=== PATIENT | female | born 1980 | race African-American/Black ===

== ENCOUNTER 2017-05-12 12:52 | Emergency (ER) | payer MEDICAID ==
[2017-05-12 13:07] VITALS: BP 158/113
[2017-05-12] MEDS ORDERED: HYDROCHLOROTHIAZIDE 12.5 MG CAPSULE PO ONE (13:18)
--- NOTE | 2017-05-12 13:18 | ER Document Report ---
ED Medical Screen (RME) - General Chief Complaint: High Blood Pressure Stated Complaint: BLOOD PRESSURE PROBLEMS Time Seen by Provider: 05/12/17 13:16 TRAVEL OUTSIDE OF THE [place] IN LAST 30 DAYS: No - HPI Notes: 05/12/17 13:16 Patient coming in for blood pressure issues. States headache ongoing for 2 days. Patient states feeling generally weak. Patient is on clonidine stop clonidine approximately 1 year ago[address] is Dr. Cee - Related Data Allergies/Adverse Reactions: hydrocodone bitartrate [From Vicodin] Allergy (Verified 05/12/17 13:05) iodine [Iodine] Allergy (Verified 05/12/17 13:05) Shellfish * [Shellfish] Allergy (Verified 05/12/17 13:05) Past Medical History - Past Medical History Cardiac Medical History: Reports: Hx Hypertension Denies: Hx Coronary Artery Disease, Hx Heart Attack Pulmonary Medical History: Reports: Hx Bronchitis Denies: Hx Asthma, Hx COPD, Hx Pneumonia, Hx Tuberculosis Neurological Medical History: Reports: Hx Migraine. Denies: Hx Cerebrovascular Accident, Hx Seizures Endocrine Medical History: Denies: Hx Diabetes Mellitus Type 1, Hx Diabetes Mellitus Type 2 Renal/ Medical History: Reports: Hx Ovarian Cysts. Denies: Hx Peritoneal Dialysis GI Medical History: Reports: Hx Gastroesophageal Reflux Disease, Hx Hiatal Hernia Musculoskeltal Medical History: Reports Hx Arthritis, Reports Hx Musculoskeletal Deformity, Reports Hx Musculoskeletal Trauma Skin Medical History: Denies Hx MRSA Psychiatric Medical History: Reports: Hx Anxiety Past Surgical History: Denies: Hx Pacemaker - Immunizations Immunizations up to date: Yes Hx Diphtheria, Pertussis, Tetanus Vaccination: Yes - 2010 Review of Systems - Review of Systems Constitutional: Other - Headache blood pressure Physical Exam - Vital signs Vitals: Temp Pulse Resp BP Pulse Ox 98.7 F 86 22 H 158/113 H 100 05/12/17 13:05 05/12/17 13:05 05/12/17 13:05 05/12/17 13:05 05/12/17 13:05 - Respiratory Respiratory status: No respiratory distress Chest status: Nontender Breath sounds: Normal Chest palpation: Normal Course - Re-evaluation Re-evalutation: 05/12/17 13:17 Check a previous visits his blood pressure is not normal for the patient today. We will check basic labs a head CT. We will give a dose ofhctz 05/12/17 13:18 - Vital Signs Vital signs: Temp Pulse Resp BP Pulse Ox 98.7 F 86 22 H 158/113 H 100 05/12/17 13:05 05/12/17 13:05 05/12/17 13:05 05/12/17 13:05 05/12/17 13:05
[2017-05-12 13:38] LABS: ABSOLUTE BASOPHILS # (AUTO) 0.2 10^3/uL (0.0-0.2); ABSOLUTE EOSINOPHILS # (AUTO) 0.2 10^3/uL (0.0-0.6); ABSOLUTE MONOCYTES (AUTO) 0.3 10^3/uL (0.1-1.4); ABSOLUTE NEUT (AUTO) 4.1 10^3/uL (1.7-8.2); BASOPHILS % (AUTO) 2.9 % (0-2); EOSINOPHILS % (AUTO) 2.8 % (0-6); HEMATOCRIT 41.6 % (36.0-47.0); HEMOGLOBIN 13.8 g/dL (12.0-15.5); HGB HCT DIFFERENCE -0.2; LYMPHOCYTES % (AUTO) 29.6 % (13-45); MEAN CORPUSCULAR HEMOGLOBIN 28.3 pg (27.0-33.4); MEAN CORPUSCULAR VOLUME 86 fl (80-97); RED BLOOD COUNT 4.85 10^6/uL (3.72-5.28); RED CELL DISTRIBUTION WIDTH 13.7 % (11.5-14.0); SEGMENTED NEUTROPHILS % (AUTO) 60.7 % (42-78); WHITE BLOOD COUNT 6.8 10^3/uL (4.0-10.5)
[2017-05-12 14:03] LABS: ANION GAP 10 (5-19); BLOOD UREA NITROGEN 14 mg/dL (7-20); CALCIUM 9.3 mg/dL (8.4-10.2); CARBON DIOXIDE 25 mmol/L (22-30); CHLORIDE 108 mmol/L (98-107); CREATININE RESULT 0.79 mg/dL (0.52-1.25); GLUCOSE 63 mg/dL (75-110); POTASSIUM 4.3 mmol/L (3.6-5.0)
--- NOTE | 2017-05-12 14:11 | RADIOLOGY REPORT (SQ) ---
EXAM DESCRIPTION: CT HEAD WITHOUT COMPLETED DATE/TIME: 05/12/2017 1:54 pm REASON FOR STUDY: headache COMPARISON: None. TECHNIQUE: Axial images acquired through the brain without intravenous contrast. Images reviewed wi th bone, brain and subdural windows. Images stored on PACS. All CT scanners at this facility use dose modulation, iterative reconstruction, and/or weight based d osing when appropriate to reduce radiation dose to as low as reasonably achievable (ALARA). [facility]: Dose Right [facility]: CareDose [facility]: Dose Right [facility]: Teradose 4D [facility]: [employer] RADIATION DOSE: 64.61 mGy. LIMITATIONS: None. FINDINGS: VENTRICLES: Normal size and contour. CEREBRUM: No masses. No hemorrhage. No midline shift. Normal rivera/white matter differentiation. N o evidence for acute infarction. CEREBELLUM: No masses. No hemorrhage. No alteration of density. No evidence for acute infarction. EXTRAAXIAL SPACES: No fluid collections. No masses. ORBITS AND GLOBE: No intra- or extraconal masses. Normal contour of globe without masses. CALVARIUM: No fracture. PARANASAL SINUSES: No fluid or mucosal thickening. SOFT TISSUES: No mass or hematoma. OTHER: No other significant finding. IMPRESSION: NORMAL BRAIN CT WITHOUT CONTRAST. TECHNICAL DOCUMENTATION: JOB ID: [id number] Quality ID # [id number]: Final reports with documentation of one or more dose reduction techniques (e.g., Au tomated exposure control, adjustment of the mA and/or kV according to patient size, use of iterative reconstruction technique) 2010 [employer]- All Rights Reserved
--- NOTE | 2017-05-12 15:14 | ER Document Report ---
ED General - General Chief Complaint: High Blood Pressure Stated Complaint: BLOOD PRESSURE PROBLEMS Time Seen by Provider: 05/12/17 13:16 TRAVEL OUTSIDE OF THE [place] IN LAST 30 DAYS: No - HPI Patient complains to provider of: Elevated blood pressure Notes: Patient states she was at work when she had her blood pressure taken and was sent to the ER for further evaluation of elevated blood pressure. Patient also complains of headache ongoing for the last 2 days. States she used to be on clonidine however she has not taken any clonidine for approximately 1 year. Patient also complains of slight nausea and vomiting over the last few days to as well. Patient denies any fevers chills diarrhea. Denies any recent travel denies any sick contacts - Related Data Allergies/Adverse Reactions: hydrocodone bitartrate [From Vicodin] Allergy (Verified 05/12/17 13:05) iodine [Iodine] Allergy (Verified 05/12/17 13:05) Shellfish * [Shellfish] Allergy (Verified 05/12/17 13:05) Past Medical History - Social History Smoking Status: Current Every Day Smoker Frequency of alcohol use: None Drug Abuse: None Family History: Arthritis, CAD, CVA, DM, Hyperlipidemia, Hypertension, Malignancy, Thyroid Disfunction Patient has suicidal ideation: No Patient has homicidal ideation: No - Past Medical History Cardiac Medical History: Reports: Hx Hypertension Denies: Hx Coronary Artery Disease, Hx Heart Attack Pulmonary Medical History: Reports: Hx Bronchitis Denies: Hx Asthma, Hx COPD, Hx Pneumonia, Hx Tuberculosis Neurological Medical History: Reports: Hx Migraine. Denies: Hx Cerebrovascular Accident, Hx Seizures Endocrine Medical History: Denies: Hx Diabetes Mellitus Type 1, Hx Diabetes Mellitus Type 2 Renal/ Medical History: Reports: Hx Ovarian Cysts. Denies: Hx Peritoneal Dialysis GI Medical History: Reports: Hx Gastroesophageal Reflux Disease, Hx Hiatal Hernia Musculoskeltal Medical History: Reports Hx Arthritis, Reports Hx Musculoskeletal Deformity, Reports Hx Musculoskeletal Trauma Skin Medical History: Denies Hx MRSA Psychiatric Medical History: Reports: Hx Anxiety Past Surgical History: Denies: Hx Pacemaker - Immunizations Immunizations up to date: Yes Hx Diphtheria, Pertussis, Tetanus Vaccination: Yes - 2010 Review of Systems - Review of Systems Constitutional: Other - Vomiting elevated blood pressure headache EENT: No symptoms reported Cardiovascular: No symptoms reported Respiratory: No symptoms reported Gastrointestinal: No symptoms reported Genitourinary: No symptoms reported Female Genitourinary: No symptoms reported Musculoskeletal: No symptoms reported Skin: No symptoms reported Hematologic/Lymphatic: No symptoms reported Neurological/Psychological: No symptoms reported Physical Exam - Vital signs Vitals: Temp Pulse Resp BP Pulse Ox 98.7 F 86 22 H 158/113 H 100 05/12/17 13:05 05/12/17 13:05 05/12/17 13:05 05/12/17 13:05 05/12/17 13:05 Interpretation: Normal - General General appearance: Appears well, Alert - HEENT Head: Normocephalic, Atraumatic Eyes: Normal Pupils: PERRL - Respiratory Respiratory status: No respiratory distress Chest status: Nontender Breath sounds: Normal Chest palpation: Normal - Cardiovascular Rhythm: Regular Heart sounds: Normal auscultation Murmur: No - Abdominal Inspection: Normal Distension: No distension Bowel sounds: Normal Tenderness: Nontender Organomegaly: No organomegaly - Back Back: Normal, Nontender - Extremities General upper extremity: Normal inspection, Nontender, Normal color, Normal ROM , Normal temperature General lower extremity: Normal inspection, Nontender, Normal color, Normal ROM , Normal temperature, Normal weight bearing. No: Desmond's sign - Neurological Neuro grossly intact: Yes Cognition: Normal Orientation: AAOx4 [place] Coma Scale Eye Opening: Spontaneous [place] Coma Scale Verbal: Oriented [place] Coma Scale Motor: Obeys Commands [place] Coma Scale Total: 15 Speech: Normal Motor strength normal: LUE, RUE, LLE, RLE Sensory: Normal - Psychological Associated symptoms: Normal affect, Normal mood - Skin Skin Temperature: Warm Skin Moisture: Dry Skin Color: Normal Course - Re-evaluation Re-evalutation: 05/12/17 20:01 The patient presents with headache without signs of [employer] bleed, stroke, infection , or other serious etiology. The patient is neurologically intact. Given the extremely low risk of these diagnoses further testing and evaluation for these possibilities does not appear to be indicated at this time. The patient has been instructed to return if the symptoms worsen or change in any way.. Patient requesting to be discharged lab work returns currently waiting on urinalysis patient does not want to wait for urinalysis at this time. States that patient make sure we have the contact information that we will call her if urinalysis is positive otherwise patient has noted other significant findings patient was educated about blood pressure patient will be given a prescription for hydrochlorothiazide encouraged follow-up with primary care physician. Reevaluation patient's urinalysis does show signs of infection patient was given a prescription to prescription was given to the charge nurse - Vital Signs Vital signs: Temp Pulse Resp BP Pulse Ox 98.7 F 86 22 H 158/113 H 100 05/12/17 13:05 05/12/17 13:05 05/12/17 13:05 05/12/17 13:05 05/12/17 13:05 - Laboratory Result Diagrams: 05/12/17 13:24 05/12/17 13:24 Laboratory results interpreted by me: 05/12/17 05/12/17 13:24 13:24 Basophils % 2.9 H Chloride 108 H Glucose 63 L Discharge - Discharge Clinical Impression: Hypertension Qualifiers: Hypertension type: other secondary hypertension Qualified Code(s): I15.8 - Other secondary hypertension Condition: Good Disposition: HOME, SELF-CARE Instructions: Hydrochlorothiazide ([facility]), High Blood Pressure ([facility]) Additional Instructions: I recommended she follow-up with your physician for blood pressure. Return to the ER for any concerning issues. Take medication as prescribed. Prescriptions: Hydrochlorothiazide 12.5 mg PO DAILY #30 capsule Forms: Return to Work Referrals: CLARIBEL CRUZ DO [Primary Care Provider] - Follow up as needed
== END 2017-05-12 15:30 | disposition home or self-care (01) ==
LOC: ER 12:52
DX: R51 Headache (principal); I15.8 Other secondary hypertension; Z79.899 Other long term (current) drug therapy; F17.200 Nicotine dependence, unspecified, uncomplicated; R11.2 Nausea with vomiting, unspecified
CPT/HCPCS: 36415; 70450; 80048; 84702; 85025; 99284

== ENCOUNTER 2018-04-19 09:11 | Emergency (ER) | payer SELFPAY ==
--- NOTE | 2018-04-19 09:31 | ER Document Report ---
ED Medical Screen (RME) - General Chief Complaint: S/S of Possible Stroke Stated Complaint: FACIAL SWELLING Time Seen by Provider: 04/19/18 09:24 Mode of Arrival: Ambulatory Information source: Patient Notes: 37-year-old female presents with complaints of left facial swelling left arm swelling weakness on the left upper extremity and not being able to feel her left hand I have greeted and performed a rapid initial assessment of this patient. A comprehensive ED assessment and evaluation of the patient, analysis of test results and completion of the medical decision making process will be conducted by additional ED providers. PHYSICAL EXAMINATION: GENERAL: Well-appearing, well-nourished and in no acute distress. HEAD: Right side appears more swollen than left the patient states it is the left side EYES: Pupils equal round extraocular movements intact, conjunctiva are normal. ENT: Nares patent NECK: Normal range of motion LUNGS: No respiratory distress Musculoskeletal: Normal range of motion NEUROLOGICAL: Subjective paresthesia left hand PSYCH: Normal mood, normal affect. SKIN: Warm, Dry, normal turgor, no rashes or lesions noted. TRAVEL OUTSIDE OF THE [place] IN LAST 30 DAYS: No - Related Data Allergies/Adverse Reactions: hydrocodone bitartrate [From Vicodin] Allergy (Verified 04/19/18 09:13) iodine [Iodine] Allergy (Verified 04/19/18 09:13) Shellfish * [Shellfish] Allergy (Verified 04/19/18 09:13) Past Medical History - Past Medical History Cardiac Medical History: Reports: Hx Hypertension Denies: Hx Coronary Artery Disease, Hx Heart Attack Pulmonary Medical History: Reports: Hx Bronchitis Denies: Hx Asthma, Hx COPD, Hx Pneumonia, Hx Tuberculosis Neurological Medical History: Reports: Hx Migraine. Denies: Hx Cerebrovascular Accident, Hx Seizures Endocrine Medical History: Denies: Hx Diabetes Mellitus Type 1, Hx Diabetes Mellitus Type 2 Renal/ Medical History: Reports: Hx Ovarian Cysts. Denies: Hx Peritoneal Dialysis GI Medical History: Reports: Hx Gastroesophageal Reflux Disease, Hx Hiatal Hernia Musculoskeltal Medical History: Reports Hx Arthritis, Reports Hx Musculoskeletal Deformity, Reports Hx Musculoskeletal Trauma Skin Medical History: Denies Hx MRSA Psychiatric Medical History: Reports: Hx Anxiety Past Surgical History: Denies: Hx Pacemaker - Immunizations Immunizations up to date: Yes Hx Diphtheria, Pertussis, Tetanus Vaccination: Yes - 2010 Physical Exam - Vital signs Vitals: Temp Pulse Resp BP Pulse Ox 98.6 F 78 16 159/110 H 99 04/19/18 09:18 04/19/18 09:18 04/19/18 09:18 04/19/18 09:18 04/19/18 09:18 Course - Vital Signs Vital signs: Temp Pulse Resp BP Pulse Ox 98.6 F 78 16 159/110 H 99 04/19/18 09:18 04/19/18 09:18 04/19/18 09:18 04/19/18 09:18 04/19/18 09:18 Doctor's Discharge - Discharge Referrals: CLARIBEL CRUZ DO [Primary Care Provider] - Follow up as needed
--- NOTE | 2018-04-19 10:04 | RADIOLOGY REPORT (SQ) ---
EXAM DESCRIPTION: CT HEAD WITHOUT COMPLETED DATE/TIME: 04/19/2018 9:48 am REASON FOR STUDY: left sided weakness COMPARISON: CT brain 05/12/2017 TECHNIQUE: Axial images acquired through the brain without intravenous contrast. Images reviewed wi th bone, brain and subdural windows. Additional sagittal and coronal reconstructions were generated. Images stored on PACS. All CT scanners at this facility use dose modulation, iterative reconstruction, and/or weight based d osing when appropriate to reduce radiation dose to as low as reasonably achievable (ALARA). [facility]: Dose Right [facility]: CareDose [facility]: Dose Right [facility]: Teradose 4D [facility]: [employer] RADIATION DOSE: CT Rad equipment meets quality standard of care and radiation dose reduction techniq ues were employed. CTDIvol: 53.2 mGy. DLP: 1017 mGy-cm. mGy. LIMITATIONS: None. FINDINGS: VENTRICLES: Normal size and contour. CEREBRUM: No masses. No hemorrhage. No midline shift. No evidence for acute infarction. Normal gra y/white matter differentiation. No areas of low density in the white matter. CEREBELLUM: No masses. No hemorrhage. No alteration of density. No evidence for acute infarction. EXTRAAXIAL SPACES: No fluid collections. No masses. ORBITS AND GLOBE: No intra- or extraconal masses. Normal contour of globe without masses. CALVARIUM: No fracture. PARANASAL SINUSES: No fluid or mucosal thickening. SOFT TISSUES: No mass or hematoma. OTHER: No other significant finding. IMPRESSION: NORMAL BRAIN CT WITHOUT CONTRAST. EVIDENCE OF ACUTE STROKE: NO. COMMENT: Quality ID # [id number]: Final reports with documentation of one or more dose reduction techniques (e.g., Automated exposure control, adjustment of the mA and/or kV according to patient size, use of iterative reconstruction technique) TECHNICAL DOCUMENTATION: JOB ID: [id number] [employer]- All Rights Reserved Reading location - IP/workstation name: [email or web address]
--- NOTE | 2018-04-19 10:08 | RADIOLOGY REPORT (SQ) ---
EXAM DESCRIPTION: CHEST SINGLE VIEW COMPLETED DATE/TIME: 04/19/2018 9:52 am REASON FOR STUDY: left sided weakness COMPARISON: 12/21/2010, 09/05/2007 EXAM PARAMETERS: NUMBER OF VIEWS: One view. TECHNIQUE: Single frontal radiographic view of the chest acquired. RADIATION DOSE: NA LIMITATIONS: None. FINDINGS: LUNGS AND PLEURA: No opacities, masses or pneumothorax. No pleural effusion. MEDIASTINUM AND HILAR STRUCTURES: No masses. Contour normal. HEART AND VASCULAR STRUCTURES: Heart normal in size. Normal vasculature. BONES: No acute findings. HARDWARE: None in the chest. OTHER: No other significant finding. IMPRESSION: NO ACUTE RADIOGRAPHIC FINDING IN THE CHEST. TECHNICAL DOCUMENTATION: JOB ID: [id number] [employer]- All Rights Reserved Reading location - IP/workstation name: [email or web address]
[2018-04-19 10:45] LABS: INTERNATIONAL RATION (INR) 0.96; PROTHROMBIN TIME 13.3 SEC (11.4-15.4)
[2018-04-19 10:46] LABS: PARTIAL THROMBOPLASTIN TIME 30.9 SEC (23.5-35.8)
[2018-04-19 11:01] LABS: ABSOLUTE EOSINOPHILS # (AUTO) 0.2 10^3/uL (0.0-0.6); ABSOLUTE LYMPHOCYTES (AUTO) 1.9 10^3/uL (0.5-4.7); ABSOLUTE MONOCYTES (AUTO) 0.3 10^3/uL (0.1-1.4); ABSOLUTE NEUT (AUTO) 3.2 10^3/uL (1.7-8.2); BASOPHILS % (AUTO) 0.4 % (0-2); HEMATOCRIT 40.8 % (36.0-47.0); HEMOGLOBIN 13.5 g/dL (12.0-15.5); LYMPHOCYTES % (AUTO) 33.6 % (13-45); MEAN CORPUSCULAR HEMOGLOBIN 28.6 pg (27.0-33.4); MEAN CORPUSCULAR VOLUME 87 fl (80-97); MONOCYTES % (AUTO) 5.7 % (3-13); PLATELET COUNT 152 10^3/uL (150-450); RED BLOOD COUNT 4.71 10^6/uL (3.72-5.28); RED CELL DISTRIBUTION WIDTH 14.1 % (11.5-14.0); SEGMENTED NEUTROPHILS % (AUTO) 57.3 % (42-78); TOTAL CELLS COUNTED % (AUTO) 100 %; WHITE BLOOD COUNT 5.6 10^3/uL (4.0-10.5)
[2018-04-19] MEDS ORDERED: DIPHENHYDRAMINE HCL 50 MG/ML VIAL IV ONE (11:12)
--- NOTE | 2018-04-19 11:12 | ER Document Report ---
ED General - General Chief Complaint: S/S of Possible Stroke Stated Complaint: FACIAL SWELLING Time Seen by Provider: 04/19/18 09:24 Mode of Arrival: Ambulatory Information source: Patient Notes: Patient presents to emergency department with complaints of swelling to the left-side of her face down to the feet and pain to the left side of her face. She reports her arm has been hurting for a couple weeks. 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 Reports her arm only hurts when she moves it. She reports the left side of her face started hurting yesterday. She points to her left cheek. Denies dental pain. Denies headache denies fever vomiting diarrhea. TRAVEL OUTSIDE OF THE [place] IN LAST 30 DAYS: No - HPI Onset: Other Onset/Duration: Persistent Quality of pain: Achy Associated symptoms: None Exacerbated by: Movement Relieved by: Denies Similar symptoms previously: No Recently seen / treated by doctor: No - Related Data Allergies/Adverse Reactions: hydrocodone bitartrate [From Vicodin] Allergy (Verified 04/19/18 09:13) iodine [Iodine] Allergy (Verified 04/19/18 09:13) Shellfish * [Shellfish] Allergy (Verified 04/19/18 09:13) Past Medical History - General Information source: Patient - Social History Smoking Status: Current Every Day Smoker Chew tobacco use (# tins/day): No Frequency of alcohol use: Occasional Drug Abuse: None Occupation: [employer] in [employer] Family History: Arthritis, CAD, CVA, DM, Hyperlipidemia, Hypertension, Malignancy, Thyroid Disfunction Patient has suicidal ideation: No Patient has homicidal ideation: No - Past Medical History Cardiac Medical History: Reports: Hx Hypertension Denies: Hx Coronary Artery Disease, Hx Heart Attack Pulmonary Medical History: Reports: Hx Bronchitis Denies: Hx Asthma, Hx COPD, Hx Pneumonia, Hx Tuberculosis Neurological Medical History: Reports: Hx Migraine. Denies: Hx Cerebrovascular Accident, Hx Seizures Endocrine Medical History: Denies: Hx Diabetes Mellitus Type 1, Hx Diabetes Mellitus Type 2 Renal/ Medical History: Reports: Hx Ovarian Cysts. Denies: Hx Peritoneal Dialysis GI Medical History: Reports: Hx Gastroesophageal Reflux Disease, Hx Hiatal Hernia Musculoskeltal Medical History: Reports Hx Arthritis, Reports Hx Musculoskeletal Deformity, Reports Hx Musculoskeletal Trauma Skin Medical History: Denies Hx MRSA Psychiatric Medical History: Reports: Hx Anxiety Past Surgical History: Denies: Hx Pacemaker - Immunizations Immunizations up to date: Yes Hx Diphtheria, Pertussis, Tetanus Vaccination: Yes - 2010 Review of Systems - Review of Systems Notes: Review HPI for review of systems., All other systems negative Physical Exam - Vital signs Vitals: Temp Pulse Resp BP Pulse Ox 98.6 F 78 16 159/110 H 99 04/19/18 09:18 04/19/18 09:18 04/19/18 09:18 04/19/18 09:18 04/19/18 09:18 - Notes Notes: PHYSICAL EXAMINATION: GENERAL: Well-appearing and in no acute distress HEAD: Atraumatic, normocephalic. EYES: Pupils equal round and reactive to light, extraocular movements intact, sclera anicteric, conjunctiva are normal. ENT: nares patent, oropharynx clear without exudates. opens mouth wide good airway moist mucous membranes. NECK: Normal range of motion, supple without lymphadenopathy LUNGS: CTAB and equal. No wheezes rales or rhonchi. HEART: Regular rate and rhythm without murmurs ABDOMEN: Soft, no tenderness. No guarding, no rebound EXTREMITIES: Normal range of motion, no pitting edema. No cyanosis. c/o pain with raising of left arm, no obvious deformity, erythema no swelling good radial pulse good cap refill, planes of pain when left shoulder palpated. NEUROLOGICAL: Cranial nerves grossly intact. Normal sensory/motor exams. no obvious neuro deficits, equal smile, no slurred speech, eyebrows raised symetric PSYCH: Normal mood, normal affect. SKIN: Warm, Dry, normal turgor, no rashes or lesions noted - HEENT Head: Normocephalic Eyes: Normal Conjunctiva: Normal Extraocular movements intact: Yes Eyelashes: Normal Pupils: PERRL Ears: Normal Nasal: Normal Mouth/Lips: Normal Mucous membranes: Normal Pharynx: Normal Neck: Normal. No: Lymphadenopathy - Extremities General upper extremity: Normal inspection, Normal ROM Shoulder: Normal Arm: Normal Elbow: Normal Forearm: Normal Wrist: Normal Hand: Normal - Neurological Neuro grossly intact: Yes Cognition: Normal Orientation: AAOx4 [place] Coma Scale Eye Opening: Spontaneous [place] Coma Scale Verbal: Oriented [place] Coma Scale Motor: Obeys Commands [place] Coma Scale Total: 15 Speech: Normal Cranial nerves: Normal Cerebellar coordination: Normal Motor strength normal: LUE, RUE, LLE, RLE Additional motor exam normals: Equal corporate counsel Course - Re-evaluation Re-evalutation: 04/19/18 12:27 Patient ambulated down the hooper to the restroom without problems. right upper eyelid with slight swelling, benadryl ordered, pt denies recent exposure to shellfish, iodine, reports decreased appetite but drinking well. 04/19/18 14:54 Labs and radiology exams unremarkable CONSULTED Dr Calderon regarding high blood pressure patient complaints radiology results. He agrees no obvious neuro deficit no obvious drooping of the face no slurred speech. Also discussed high blood pressure, patient has a history of a high blood pressure for years. She is noncompliant she reports she did not take her lisinopril last night. Will switch her to hydrochlorothiazide per Dr Womack instruction, instructed to follow-up with her primary care provider. - Vital Signs Vital signs: Temp Pulse Resp BP Pulse Ox 98.6 F 78 18 167/118 H 100 04/19/18 09:18 04/19/18 09:18 04/19/18 15:01 04/19/18 15:01 04/19/18 15:01 - Laboratory Result Diagrams: 04/19/18 10:20 04/19/18 10:20 Laboratory results interpreted by me: 04/19/18 04/19/18 10:20 10:20 RDW 14.1 H Sodium 145.9 H Glucose 67 L Total Protein 9.0 H - Diagnostic Test Radiology reviewed: Image reviewed, Reports reviewed - Diagnostic report text EXAM DESCRIPTION: SHOULDER LEFT 2 OR MORE VIEWS COMPLETED DATE/TIME: 04/19/2018 1:16 pm REASON FOR STUDY: pain with movement COMPARISON: None. NUMBER OF VIEWS: Three views. TECHNIQUE: Internal rotation, external rotation, and Y view images acquired of the left shoulder. LIMITATIONS: None. FINDINGS: MINERALIZATION: Normal. BONES: No acute fracture or dislocation. No worrisome bone lesions. JOINTS: No glenohumeral dislocation. No widening of the acromioclavicular joint VISUALIZED LUNGS AND RIBS: No pneumothorax. No rib fracture. SOFT TISSUES: No radiopaque foreign body. OTHER: No other significant finding. IMPRESSION: NEGATIVE STUDY OF THE LEFT SHOULDER. NO RADIOGRAPHIC EVIDENCE OF ACUTE INJURY Diagnostic report text EXAM DESCRIPTION: CT HEAD WITHOUT COMPLETED DATE/TIME: 04/19/2018 9:48 am REASON FOR STUDY: left sided weakness COMPARISON: CT brain 05/12/2017 TECHNIQUE: Axial images acquired through the brain without intravenous contrast. Images reviewed with bone, brain and subdural windows. Additional sagittal and coronal reconstructions were generated. Images stored on PACS. All CT scanners at this facility use dose modulation, iterative reconstruction, and/or weight based dosing when appropriate to reduce radiation dose to as low as reasonably achievable (ALARA). [facility]: Dose Right [facility]: CareDose [facility]: Dose Right [facility]: Teradose 4D [facility]: [employer] RADIATION DOSE: CT Rad equipment meets quality standard of care and radiation dose reduction techniques were employed. CTDIvol: 53.2 mGy. DLP: 1017 mGy-cm. mGy. LIMITATIONS: None. FINDINGS: VENTRICLES: Normal size and contour. CEREBRUM: No masses. No hemorrhage. No midline shift. No evidence for acute infarction. Normal rivera/ white matter differentiation. No areas of low density in the white matter. CEREBELLUM: No masses. No hemorrhage. No alteration of density. No evidence for acute infarction. EXTRAAXIAL SPACES: No fluid collections. No masses. ORBITS AND GLOBE: No intra- or extraconal masses. Normal contour of globe without masses. CALVARIUM: No fracture. PARANASAL SINUSES: No fluid or mucosal thickening. SOFT TISSUES: No mass or hematoma. OTHER: No other significant finding. IMPRESSION: NORMAL BRAIN CT WITHOUT CONTRAST. EVIDENCE OF ACUTE STROKE: NO. Discharge - Discharge Clinical Impression: left shoulder arm pain High blood pressure Qualifiers: Hypertension type: unspecified Qualified Code(s): I10 - Essential (primary) hypertension Condition: Stable Disposition: HOME, SELF-CARE Instructions: High Blood Pressure, Requiring Treatment ([facility]), Hydrochlorothiazide ([facility]) Additional Instructions: *You have been evaluated for left shoulder/arm pain swelling, left sided facial pain, high blood pressure *Take your blood pressure medication as prescribed *Follow up with a primary care provider within 3 days *Return to ED for worsening condition, changes, needs *Return to ED if not better in 24 hours Prescriptions: Hydrochlorothiazide 12.5 mg PO BID #30 capsule Forms: Return to Work Referrals: CLARIBEL CRUZ DO [Primary Care Provider] - Follow up in 3-5 days
[2018-04-19 11:16] LABS: ALANINE AMINOTRANSFERASE 25 U/L (9-52); ALBUMIN 4.8 g/dL (3.5-5.0); ALKALINE PHOSPHATASE 54 U/L (38-126); ANION GAP 13 (5-19); ASPARTATE AMINO TRANSFERASE 28 U/L (14-36); BILIRUBIN,DIRECT 0.3 mg/dL (0.0-0.4); BILIRUBIN,TOTAL 0.3 mg/dL (0.2-1.3); BLOOD UREA NITROGEN 16 mg/dL (7-20); CALCIUM 9.8 mg/dL (8.4-10.2); CARBON DIOXIDE 27 mmol/L (22-30); CHLORIDE 106 mmol/L (98-107); CREATINE KINASE 83 U/L (30-135); GLUCOSE 67 mg/dL (75-110); POTASSIUM 4.9 mmol/L (3.6-5.0); SODIUM 145.9 mmol/L (137-145)
[2018-04-19 11:26] LABS: CREATINE KINASE MB 0.38 ng/mL (<4.55)
[2018-04-19 11:28] LABS: TROPONIN I < 0.012 ng/mL
--- NOTE | 2018-04-19 12:16 | RADIOLOGY REPORT (SQ) ---
EXAM DESCRIPTION: VENOUS UNILATERAL UPPER COMPLETED DATE/TIME: 04/19/2018 11:50 am REASON FOR STUDY: left neck and left arm swelling COMPARISON: None. TECHNIQUE: Dynamic and static rivera scale and color images acquired of the left arm venous system. Se lected spectral images acquired with additional compression and augmentation maneuvers. The contralat eral subclavian vein and internal jugular vein were also imaged. Images stored on PACS. LIMITATIONS: None. FINDINGS: LEFT INTERNAL JUGULAR VEIN: Normal phasicity, compression, augmentation. No visualized echogenic material on rivera scale. No defects on color images. Comparison opposite side normal. SUBCLAVIAN VEIN: Normal compression, augmentation. No visualized echogenic material on rivera scale. No defects on color images. AXILLARY VEIN: Normal compression, augmentation. No visualized echogenic material on rivera scale. No d efects on color images. BRACHIAL VEIN: Normal compression, augmentation. No visualized echogenic material on rivera scale. No d efects on color images. BASILIC VEIN: Normal compression, augmentation. No visualized echogenic material on rivera scale. No de fects on color images. CEPHALIC VEIN: Normal compression, augmentation. No visualized echogenic material on rivera scale. No d efects on color images. OTHER: No other significant finding. IMPRESSION: NO EVIDENCE DVT OR SVT LEFT ARM. TECHNICAL DOCUMENTATION: JOB ID: [id number] [email or web address]- All Rights Reserved Reading location - IP/workstation name: [email or web address]
--- NOTE | 2018-04-19 13:37 | RADIOLOGY REPORT (SQ) ---
EXAM DESCRIPTION: SHOULDER LEFT 2 OR MORE VIEWS COMPLETED DATE/TIME: 04/19/2018 1:16 pm REASON FOR STUDY: pain with movement COMPARISON: None. NUMBER OF VIEWS: Three views. TECHNIQUE: Internal rotation, external rotation, and Y view images acquired of the left shoulder. LIMITATIONS: None. FINDINGS: MINERALIZATION: Normal. BONES: No acute fracture or dislocation. No worrisome bone lesions. JOINTS: No glenohumeral dislocation. No widening of the acromioclavicular joint VISUALIZED LUNGS AND RIBS: No pneumothorax. No rib fracture. SOFT TISSUES: No radiopaque foreign body. OTHER: No other significant finding. IMPRESSION: NEGATIVE STUDY OF THE LEFT SHOULDER. NO RADIOGRAPHIC EVIDENCE OF ACUTE INJURY. TECHNICAL DOCUMENTATION: JOB ID: [id number] [employer]- All Rights Reserved Reading location - IP/workstation name: [email or web address]
[2018-04-19 15:11] VITALS: BP 167/118
--- NOTE | 2018-04-19 20:55 | EKG REPORT ---
SEVERITY:- NORMAL ECG - SINUS RHYTHM : Confirmed by: Sarahi Minaya 19-Apr-2018 20:55:05
== END 2018-04-19 15:20 | disposition home or self-care (01) ==
LOC: ER 09:11
DX: M25.512 Pain in left shoulder (principal); I10 Essential (primary) hypertension; R22.0 Localized swelling, mass and lump, head; M79.89 Other specified soft tissue disorders; R63.0 Anorexia; X50.9XXA Other and unspecified overexertion or strenuous movements or postures, initial encounter; F17.200 Nicotine dependence, unspecified, uncomplicated
CPT/HCPCS: 93005; 99284; 96374; 36415; 82553; 82550; 85025; 85610; 85730; 80053; 84484; 93971; 71045; 73030; 70450; 93010; J1200

== ENCOUNTER 2018-09-24 09:30 | Emergency (ER) | payer SELFPAY ==
[2018-09-24] MEDS ORDERED: CLONIDINE HCL 0.1 MG TABLET PO ONE (10:19)
[2018-09-24] MEDS ORDERED: ACETAMINOPHEN 325 MG TABLET PO ONE (10:24)
--- NOTE | 2018-09-24 10:24 | ER Document Report ---
ED General - General Chief Complaint: Congestion Stated Complaint: COUGH/FEVER Time Seen by Provider: 09/24/18 10:16 Mode of Arrival: Ambulatory Information source: Patient Notes: 4-week history of rhinorrhea, sore throat, cough. Patient states that she has been taking [id number] medication with minimal relief of symptoms. Patient states that she is began running some fevers. She feels like this is worsening. She states that she is also had some intermittent nausea. She denies any abdominal pain, chest pain, difficulty breathing. Hx of sick contacts with similar symptoms. TRAVEL OUTSIDE OF THE [place] IN LAST 30 DAYS: No - HPI Onset: Other - 4 weeks Onset/Duration: Gradual Associated symptoms: Chills, Productive cough, Fever, Nausea, Vomiting, Rhinnorhea Exacerbated by: Denies Relieved by: Denies Similar symptoms previously: Yes Recently seen / treated by doctor: No - Related Data Allergies/Adverse Reactions: egg Allergy (Verified 09/24/18 11:22) hydrocodone bitartrate [From Vicodin] Allergy (Verified 09/24/18 11:22) iodine [Iodine] Allergy (Verified 09/24/18 11:22) Shellfish * [Shellfish] Allergy (Verified 09/24/18 11:22) Past Medical History - Social History Smoking Status: Current Every Day Smoker Chew tobacco use (# tins/day): No Frequency of alcohol use: None Drug Abuse: None Family History: Arthritis, CAD, CVA, DM, Hyperlipidemia, Hypertension, Malignancy, Thyroid Disfunction Patient has suicidal ideation: No Patient has homicidal ideation: No - Past Medical History Cardiac Medical History: Reports: Hx Hypertension Denies: Hx Coronary Artery Disease, Hx Heart Attack Pulmonary Medical History: Reports: Hx Bronchitis Denies: Hx Asthma, Hx COPD, Hx Pneumonia, Hx Tuberculosis Neurological Medical History: Reports: Hx Migraine. Denies: Hx Cerebrovascular Accident, Hx Seizures Endocrine Medical History: Denies: Hx Diabetes Mellitus Type 1, Hx Diabetes Mellitus Type 2 Renal/ Medical History: Reports: Hx Ovarian Cysts. Denies: Hx Peritoneal Dialysis GI Medical History: Reports: Hx Gastroesophageal Reflux Disease, Hx Hiatal Hernia Musculoskeletal Medical History: Reports Hx Arthritis, Reports Hx Musculoskeletal Deformity, Reports Hx Musculoskeletal Trauma Skin Medical History: Denies Hx MRSA Psychiatric Medical History: Reports: Hx Anxiety Past Surgical History: Denies: Hx Pacemaker - Immunizations Immunizations up to date: Yes Hx Diphtheria, Pertussis, Tetanus Vaccination: Yes - 2010 Review of Systems - Review of Systems Constitutional: Chills, Fever EENT: Nose discharge, Throat pain Cardiovascular: No symptoms reported Respiratory: Cough Gastrointestinal: Nausea, Vomiting Genitourinary: No symptoms reported Female Genitourinary: No symptoms reported Musculoskeletal: No symptoms reported Skin: No symptoms reported Hematologic/Lymphatic: No symptoms reported Neurological/Psychological: No symptoms reported -: Yes All other systems reviewed and negative Physical Exam - Vital signs Vitals: Temp Pulse Resp BP Pulse Ox 98.4 F 83 14 158/110 H 100 09/24/18 09:44 09/24/18 09:44 09/24/18 09:44 09/24/18 09:44 09/24/18 09:44 - General Notes: PHYSICAL EXAMINATION: GENERAL: Well-appearing, well-nourished and in no acute distress. HEAD: Atraumatic, normocephalic. EYES: Pupils equal round and reactive to light, extraocular movements intact, conjunctiva are normal. ENT: Nares patent, oropharynx clear without exudates. Moist mucous membranes. NECK: Normal range of motion, supple without lymphadenopathy LUNGS: Breath sounds clear to auscultation bilaterally and equal. No wheezes rales or rhonchi. HEART: Regular rate and rhythm without murmurs ABDOMEN: Soft, nontender, nondistended abdomen. No guarding, no rebound. No masses appreciated. Female : deferred Musculoskeletal: Normal range of motion, no pitting or edema. No cyanosis. NEUROLOGICAL: Cranial nerves grossly intact. Normal speech, normal gait. Normal sensory, motor exams PSYCH: Normal mood, normal affect. SKIN: Warm, Dry, normal turgor, no rashes or lesions noted. Course - Re-evaluation Re-evalutation: 09/24/18 20:39 Urinalysis was done and is within normal limits. Patient had a negative test. Patient instructed to follow-up with her primary care physician this week, to take medication prescribed as directed, and to return to emergency department for worsening symptoms. Patient is agreeable with plan of care. - Vital Signs Vital signs: Temp Pulse Resp BP Pulse Ox 98.0 F 71 18 140/104 H 100 09/24/18 11:18 09/24/18 11:18 09/24/18 11:18 09/24/18 11:18 09/24/18 11:18 - Laboratory Laboratory results interpreted by me: 09/24/18 10:30 Ur Leukocyte Esterase TRACE H Discharge - Discharge Clinical Impression: Upper respiratory infection Qualifiers: URI type: unspecified URI Qualified Code(s): J06.9 - Acute upper respiratory infection, unspecified Condition: Good Disposition: HOME, SELF-CARE Instructions: Upper Respiratory Illness ([facility]) Prescriptions: Benzonatate [Tessalon Perles 100 mg Capsule] 100 mg PO Q8HP PRN #40 capsule PRN Reason: Albuterol Sulfate [Proair HFA Inhalation Aerosol 8.5 gm MDI] 2 puff IH Q4H PRN # 1 mdi PRN Reason: Azithromycin [Zithromax 250 mg Tablet] 250 mg PO ASDIR PRN #6 tablet PRN Reason: Forms: Return to Work Referrals: CLARIBEL CRUZ DO [NO LOCAL MD] - Follow up as needed
[2018-09-24 10:52] LABS: APPEARANCE,URINE SLIGHTLY-CLOUDY; BILIRUBIN,URINE NEGATIVE (NEGATIVE); COLOR,URINE YELLOW; GLUCOSE, URINE NEGATIVE (NEGATIVE); KETONES,URINE NEGATIVE (NEGATIVE); LEUKOCYTE ESTERASE,URINE TRACE (NEGATIVE); NITRITE,URINE NEGATIVE (NEGATIVE); PROTEIN,URINE NEGATIVE (NEGATIVE); URINE SPECIFIC GRAVITY 1.015; UROBILINOGEN,URINE NEGATIVE mg/dL (<2.0)
[2018-09-24 11:20] VITALS: BP 140/104
== END 2018-09-24 11:32 | disposition home or self-care (01) ==
LOC: ER 09:30
DX: J06.9 Acute upper respiratory infection, unspecified (principal); R09.81 Nasal congestion; R05 Cough; R50.9 Fever, unspecified; J02.9 Acute pharyngitis, unspecified; R11.2 Nausea with vomiting, unspecified; F17.200 Nicotine dependence, unspecified, uncomplicated; I10 Essential (primary) hypertension
CPT/HCPCS: 81001; 81025; 99283

== ENCOUNTER 2019-04-16 09:34 | Emergency (ER) | payer OTHER ==
[2019-04-16 09:42] VITALS: BP 160/112
[2019-04-16] MEDS ORDERED: ONDANSETRON 4 MG TAB.RAPDIS PO ONE (11:03)
--- NOTE | 2019-04-16 11:06 | ER Document Report ---
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 Blood pressure was elevated and when in the emergency room her blood pressure was 160/112. Patient states she has not vomited in the last little while but she is still nauseated. Patient will have blood and urine ordered as well as Zofran for the nausea and vomiting. Patient is alert oriented respirations regular and unlabored speaking in full sentences at this time. I have greeted and performed a rapid initial assessment of this patient. A comprehensive ED assessment and evaluation of the patient, analysis of test results and completion of medical decision making process will be conducted by an additional ED providers. Dictation of this chart was performed using voice recognition software; therefore, there may be some unintended grammatical errors. TRAVEL OUTSIDE OF THE [place] IN LAST 30 DAYS: No - Related Data Allergies/Adverse Reactions: egg Allergy (Verified 04/16/19 09:35) hydrocodone bitartrate [From Vicodin] Allergy (Verified 04/16/19 09:35) iodine [Iodine] Allergy (Verified 04/16/19 09:35) Shellfish * [Shellfish] Allergy (Verified 04/16/19 09:35) Past Medical History - Social History Frequency of alcohol use: None Drug Abuse: None - Past Medical History Cardiac Medical History: Reports: Hx Hypertension Denies: Hx Coronary Artery Disease, Hx Heart Attack Pulmonary Medical History: Reports: Hx Bronchitis Denies: Hx Asthma, Hx COPD, Hx Pneumonia, Hx Tuberculosis Neurological Medical History: Reports: Hx Migraine. Denies: Hx Cerebrovascular Accident, Hx Seizures Endocrine Medical History: Denies: Hx Diabetes Mellitus Type 1, Hx Diabetes Mellitus Type 2 Renal/ Medical History: Reports: Hx Ovarian Cysts. Denies: Hx Peritoneal Dialysis GI Medical History: Reports: Hx Gastroesophageal Reflux Disease, Hx Hiatal Hernia Musculoskeltal Medical History: Reports Hx Arthritis, Reports Hx Musculoskeletal Deformity, Reports Hx Musculoskeletal Trauma Skin Medical History: Denies Hx MRSA Psychiatric Medical History: Reports: Hx Anxiety Past Surgical History: Denies: Hx Pacemaker - Immunizations Immunizations up to date: Yes Hx Diphtheria, Pertussis, Tetanus Vaccination: Yes - 2010 Physical Exam - Vital signs Vitals: Temp Pulse Resp BP Pulse Ox 98.9 F 94 16 160/112 H 100 04/16/19 09:38 04/16/19 09:38 04/16/19 09:38 04/16/19 09:38 04/16/19 09:38 Course - Vital Signs Vital signs: Temp Pulse Resp BP Pulse Ox 98.9 F 94 16 160/112 H 100 04/16/19 09:38 04/16/19 09:38 04/16/19 09:38 04/16/19 09:38 04/16/19 09:38
[2019-04-16 11:49] LABS: ABSOLUTE EOSINOPHILS # (AUTO) 0.2 10^3/uL (0.0-0.6); ABSOLUTE LYMPHOCYTES (AUTO) 2.1 10^3/uL (0.5-4.7); ABSOLUTE MONOCYTES (AUTO) 0.3 10^3/uL (0.1-1.4); ABSOLUTE NEUT (AUTO) 3.2 10^3/uL (1.7-8.2); BASOPHILS % (AUTO) 0.6 % (0-2); EOSINOPHILS % (AUTO) 2.9 % (0-6); HEMATOCRIT 39.9 % (36.0-47.0); HEMOGLOBIN 13.2 g/dL (12.0-15.5); LYMPHOCYTES % (AUTO) 35.7 % (13-45); MEAN CORPUSCULAR HEMOGLOBIN 28.9 pg (27.0-33.4); MEAN CORPUSCULAR HGB CONC 33.1 g/dL (32.0-36.0); MEAN CORPUSCULAR VOLUME 88 fl (80-97); MONOCYTES % (AUTO) 5.8 % (3-13); PLATELET COUNT 166 10^3/uL (150-450); RED BLOOD COUNT 4.57 10^6/uL (3.72-5.28); RED CELL DISTRIBUTION WIDTH 13.9 % (11.5-14.0); TOTAL CELLS COUNTED % (AUTO) 100 %; WHITE BLOOD COUNT 5.9 10^3/uL (4.0-10.5)
[2019-04-16 11:56] LABS: APPEARANCE,URINE SLIGHTLY-CLOUDY; BILIRUBIN,URINE NEGATIVE (NEGATIVE); COLOR,URINE YELLOW; GLUCOSE, URINE NEGATIVE (NEGATIVE); KETONES,URINE NEGATIVE (NEGATIVE); LEUKOCYTE ESTERASE,URINE TRACE (NEGATIVE); NITRITE,URINE NEGATIVE (NEGATIVE); PROTEIN,URINE NEGATIVE (NEGATIVE); URINE SPECIFIC GRAVITY 1.021; UROBILINOGEN,URINE NEGATIVE mg/dL (<2.0)
[2019-04-16 12:11] LABS: ALANINE AMINOTRANSFERASE 22 U/L (9-52); ALBUMIN 4.6 g/dL (3.5-5.0); ALKALINE PHOSPHATASE 57 U/L (38-126); ANION GAP 9 (5-19); ASPARTATE AMINO TRANSFERASE 22 U/L (14-36); BILIRUBIN,DIRECT 0.2 mg/dL (0.0-0.4); BILIRUBIN,TOTAL 0.4 mg/dL (0.2-1.3); BLOOD UREA NITROGEN 9 mg/dL (7-20); CALCIUM 9.5 mg/dL (8.4-10.2); CARBON DIOXIDE 29 mmol/L (22-30); CHLORIDE 103 mmol/L (98-107); GLUCOSE 80 mg/dL (75-110); LIPASE 57.8 U/L (23-300); POTASSIUM 4.2 mmol/L (3.6-5.0); SODIUM 141.1 mmol/L (137-145); TOTAL PROTEIN 8.3 g/dL (6.3-8.2)
== END 2019-04-16 14:00 | disposition left against medical advice (07) ==
LOC: ER 09:34
DX: R11.2 Nausea with vomiting, unspecified (principal); R42 Dizziness and giddiness; R53.1 Weakness; I10 Essential (primary) hypertension; Z53.20 Procedure and treatment not carried out because of patient's decision for unspecified reasons; Z91.012 Allergy to eggs; Z88.5 Allergy status to narcotic agent; Z91.013 Allergy to seafood
CPT/HCPCS: 99281; 36415; 83690; 84703; 85025; 80053; 81001; S0119

== ENCOUNTER 2019-11-06 11:49 | Emergency (ER) | payer OTHER ==
[2019-11-06 12:03] VITALS: BP 141/98
[2019-11-06] MEDS ORDERED: IPRATROPIUM/ALBUTEROL 0.5-2.5 MG/3 ML AMPUL NEB ONE (12:33)
--- NOTE | 2019-11-06 12:39 | ER Document Report ---
HPI - HPI Time Seen by Provider: 11/06/19 12:27 Pain Level: 3 Notes: 39-year-old female presents emergency with complaints of fever chills, nausea vomiting, productive cough sore throat for the last 5 days it become progressively worse. Patient negative flu shot due to allergy to eggs. Patient works in a [employer]. Has not tried [id number] medications. Pack-a-day smoker. History of hypertension. Worse with time, nothing makes better. Decreased eating but drinking without issues. No history of asthma or COPD. Denies chest pain,palpitations, shortness of breath, dyspnea, abdominal pain, hematuria,blurred vision, double vision, loss of vision, speech changes, LH, dizziness, syncope,neck pain, weakness, bowel or bladder dysfunction, saddle anesthesia, numbness or tingling in bilateral upper or lower extremities equally, muscle paralysis, weakness in bilateral upper or lower extremities equally or rash. REVIEW OF SYSTEMS:reviewed vital signs by RN CONSTITUTIONAL : Reprts fever, chills, or sweats. Denies recent illness. EENT: Denies eye, ear, throat, or mouth pain or symptoms. Reports nasal or sinus congestion or discharge. Denies throat, tongue, or mouth swelling or difficulty swallowing. CARDIOVASCULAR: Denies chest pain. Denies palpitations or racing or irregular heart beat. Denies ankle edema. RESPIRATORY: Reports cough, cold, or chest congestion. Denies shortness of breath, difficulty breathing, or wheezing. GASTROINTESTINAL: Denies abdominal pain or distention. Denies nausea, vomiting, or diarrhea. Denies blood in vomitus, stools, or per rectum. Denies black, tarry stools. Denies constipation. GENITOURINARY: Denies difficulty urinating, painful urination, burning, frequency, blood in urine, or discharge. FEMALE GENITOURINARY: Denies vaginal bleeding, heavy or abnormal periods, irregular periods. Denies vaginal discharge or odor. MUSCULOSKELETAL: Denies back or neck pain or stiffness. Denies joint pain or swelling. SKIN: Denies rash, lesions or sores. HEMATOLOGIC : Denies easy bruising or bleeding. LYMPHATIC: Denies swollen, enlarged glands. NEUROLOGICAL: Denies confusion or altered mental status. Denies passing out or loss of consciousness. Denies dizziness or lightheadedness. Denies headache. Denies weakness or paralysis or loss of use of either side. Denies problems with gait or speech. Denies sensory loss, numbness, or tingling. Denies seizures. PSYCHIATRIC: Denies anxiety or stress. Denies depression, suicidal ideation, or homicidal ideation. ALL OTHER SYSTEMS REVIEWED AND NEGATIVE. PHYSICAL EXAMINATION:reviewed vital signs by RN GENERAL: Well-appearing, well-nourished and in no acute distress. HEAD: Atraumatic, normocephalic. EYES: Pupils equal round and reactive to light, extraocular movements intact, conjunctiva are normal. ENT: TM intact with bilateral serous effusion, no erythema. Nares boggy bilaterally, oropharynx with erythema without exudates. Moist mucous membranes. NECK: Normal range of motion, supple without lymphadenopathy LUNGS: decreased BS in bilateral upper lobes. No wheezes rales or rhonchi. HEART: Regular rate and rhythm without murmurs ABDOMEN: Soft, nontender, nondistended abdomen. No guarding, no rebound. No masses appreciated. Female : deferred Musculoskeletal: Normal range of motion, no pitting or edema. No cyanosis. NEUROLOGICAL: Cranial nerves grossly intact. Normal speech, normal gait. Abena l sensory, motor exams PSYCH: Normal mood, normal affect. SKIN: Warm, Dry, normal turgor, no rashes or lesions noted. - REPRODUCTIVE Reproductive: DENIES: : Past Medical History - General Information source: Patient - Social History Smoking Status: Current Every Day Smoker Chew tobacco use (# tins/day): No Frequency of alcohol use: None Drug Abuse: None Family History: Arthritis, CAD, CVA, DM, Hyperlipidemia, Hypertension, Malignancy, Thyroid Disfunction Patient has suicidal ideation: No Patient has homicidal ideation: No - Past Medical History Cardiac Medical History: Reports: Hx Hypertension Denies: Hx Coronary Artery Disease, Hx Heart Attack Pulmonary Medical History: Reports: Hx Bronchitis Denies: Hx Asthma, Hx COPD, Hx Pneumonia, Hx Tuberculosis Neurological Medical History: Reports: Hx Migraine. Denies: Hx Cerebrovascular Accident, Hx Seizures Endocrine Medical History: Denies: Hx Diabetes Mellitus Type 1, Hx Diabetes Mellitus Type 2 Renal/ Medical History: Reports: Hx Ovarian Cysts. Denies: Hx Peritoneal Dialysis GI Medical History: Reports: Hx Gastroesophageal Reflux Disease, Hx Hiatal Hernia Musculoskeletal Medical History: Reports Hx Arthritis, Reports Hx Musculoskeletal Deformity, Reports Hx Musculoskeletal Trauma Skin Medical History: Denies Hx MRSA Psychiatric Medical History: Reports: Hx Anxiety Past Surgical History: Denies: Hx Pacemaker - Immunizations Immunizations up to date: Yes Hx Diphtheria, Pertussis, Tetanus Vaccination: Yes - 2010 Vertical Provider Document - CONSTITUTIONAL Agree With Documented VS: Yes Exam Limitations: No Limitations General Appearance: WD/WN Notes: P PHYSICAL EXAMINATION:reviewed vital signs by RN GENERAL: Well-appearing, well-nourished and in no acute distress. HEAD: Atraumatic, normocephalic. EYES: Pupils equal round and reactive to light, extraocular movements intact, conjunctiva are normal. ENT: TM intact with bilateral serous effusion, no erythema. Nares boggy bilaterally, oropharynx with erythema without exudates. Moist mucous membranes. NECK: Normal range of motion, supple without lymphadenopathy LUNGS: Breath sounds clear to auscultation bilaterally and equal. No wheezes rales or rhonchi. HEART: Regular rate and rhythm without murmurs ABDOMEN: Soft, nontender, nondistended abdomen. No guarding, no rebound. No masses appreciated. Female : deferred Musculoskeletal: Normal range of motion, no pitting or edema. No cyanosis. NEUROLOGICAL: Cranial nerves grossly intact. Normal speech, normal gait. Normal sensory, motor exams PSYCH: Normal mood, normal affect. SKIN: Warm, Dry, normal turgor, no rashes or lesions noted. - INFECTION CONTROL TRAVEL OUTSIDE OF THE [place] IN LAST 30 DAYS: No Course - Re-evaluation Re-evalutation: 11/06/19 12:37 Afebrile vital stable no distress. Nurse's notes reviewed. Chest x-ray negative for any acute findings per radiology. Patient's breath sounds clear on auscultation after DuoNeb. Since patient is exposed to flu working as a [employer] in her job, patient did not get the flu shot due to allergies to egg with sudden onset flulike symptoms, will treat with Tamiflu according to CDC as well as supportive care. Patient presents with cough, vomiting, diarrhea, and fever at home consistent with a flulike illness although our flu test here is negative. Sensitivity for this years flu assay is apparently 91-92%. Clinical history and exam is not consistent with an acute bacterial meningitis, encephalitis, pneumonia, there is no evidence of a cellulitis on examination. Patient likewise denies any urinary symptoms. Chest x-ray is clear without any evidence of an acute pneumonia. Urinalysis without any evidence of a pyelonephritis. Patient does not have any focal abdominal tenderness to suggest an acute biliary pathology, acute appendicitis, acute mesenteric ischemia, bowel obstruction, bowel, or any other life-threatening acute intra-abdominal pathology as the etiology of the fever and additional symptoms today. Labs are otherwise unremarkable. Patient is tolerated oral intake without difficulty. Vitals at time of reassessment are within normal limits. At this time will discharge with return precautions and follow-up recommendations. Verbal discharge instructions given a the bedside and opportunity for questions given. Medication warnings maicol chance. Patient is in agreement with this plan and has verbalized understanding of return precautions and the need for primary care follow-up in the next 24-72 hours. 11/06/19 15:12 - Vital Signs Vital signs: Temp Pulse Resp BP Pulse Ox 98.6 F 78 18 141/98 H 100 11/06/19 12:25 11/06/19 12:25 11/06/19 12:25 11/06/19 12:25 11/06/19 12:25 Discharge - Discharge Clinical Impression: Flu-like symptoms Condition: Stable Disposition: HOME, SELF-CARE Instructions: Cough Suppressant & Expectorant Medications, Influenza (OM) Additional Instructions: You clinically have influenza. Your rapid strep and rapid flu were negative. You have been exposed to the flu in your workplace, your clinical symptoms show flulike symptoms. there is no treatment that is effective for this diagnosis other than supportive care at home and tamiflu. This includes drinking plenty of fluids, using Tylenol or ibuprofen as needed for fever and discomfort, and Zofran as needed for nausea and vomiting. Please follow closely with you primary care physician the next 1-2 days regarding this diagnosis. Return to the emergency department immediately if you began to have persistent vomiting prevents you from being able to keep fluids down for more than 12 hours, you pass out, you began having difficulty breathing, you become confused, or you have any other symptoms that are worrisome to you. Prescriptions: Albuterol Sulfate [Proair Respiclick] 90 mcg IH Q4HP PRN #1 [id number] PRN Reason: Benzonatate [Tessalon Perles 100 mg Capsule] 100 mg PO Q8HP PRN #20 capsule PRN Reason: Oseltamivir Phosphate [Tamiflu 75 mg Capsule] 75 mg PO BID #10 capsule Forms: Return to Work Referrals: MICK VO MD [ACTIVE STAFF] - Follow up as needed
[2019-11-06 13:06] LABS: A TYPE INFLUENZA AG NEGATIVE (NEGATIVE); B INFLUENZA AG NEGATIVE (NEGATIVE)
--- NOTE | 2019-11-06 14:39 | RADIOLOGY REPORT (SQ) ---
EXAM DESCRIPTION: CHEST 2 VIEWS COMPLETED DATE/TIME: 11/06/2019 1:21 pm REASON FOR STUDY: fever/productive cough x 5 days COMPARISON: None. TECHNIQUE: Frontal and lateral radiographic views of the chest acquired. NUMBER OF VIEWS: Two view. LIMITATIONS: None. FINDINGS: LUNGS AND PLEURA: No opacities, masses or pneumothorax. No pleural effusion. MEDIASTINUM AND HILAR STRUCTURES: No masses or contour abnormalities. HEART AND VASCULAR STRUCTURES: Heart normal size. No evidence for failure. BONES: No acute findings. HARDWARE: None in the chest. OTHER: No other significant finding. IMPRESSION: NO SIGNIFICANT RADIOGRAPHIC FINDING IN THE CHEST. TECHNICAL DOCUMENTATION: JOB ID: [id number] [employer]- All Rights Reserved Reading location - IP/workstation name: [email or web address]
== END 2019-11-06 15:16 | disposition home or self-care (01) ==
LOC: ER 11:49
DX: R11.2 Nausea with vomiting, unspecified (principal); R05 Cough; R50.9 Fever, unspecified; F17.200 Nicotine dependence, unspecified, uncomplicated; I10 Essential (primary) hypertension
CPT/HCPCS: 94640; 99284; 87070; 87880; 87804; 71046; J7620

== ENCOUNTER 2020-09-29 09:08 | Emergency (ER) | payer OTHER ==
[2020-09-29 10:41] LABS: ABSOLUTE EOSINOPHILS # (AUTO) 0.2 10^3/uL (0.0-0.6); ABSOLUTE MONOCYTES (AUTO) 0.3 10^3/uL (0.1-1.4); ABSOLUTE NEUT (AUTO) 3.7 10^3/uL (1.7-8.2); BASOPHILS % (AUTO) 0.5 % (0-2); EOSINOPHILS % (AUTO) 2.8 % (0-6); HEMATOCRIT 38.8 % (36.0-47.0); LYMPHOCYTES % (AUTO) 32.5 % (13-45); MEAN CORPUSCULAR HEMOGLOBIN 29.4 pg (27.0-33.4); MEAN CORPUSCULAR HGB CONC 33.5 g/dL (32.0-36.0); MEAN CORPUSCULAR VOLUME 88 fl (80-97); MONOCYTES % (AUTO) 5.5 % (3-13); PLATELET COUNT 165 10^3/uL (150-450); RED BLOOD COUNT 4.42 10^6/uL (3.72-5.28); SEGMENTED NEUTROPHILS % (AUTO) 58.7 % (42-78); TOTAL CELLS COUNTED % (AUTO) 100 %; WHITE BLOOD COUNT 6.3 10^3/uL (4.0-10.5)
[2020-09-29 10:57] LABS: ALBUMIN 4.1 g/dL (3.5-5.0); ALKALINE PHOSPHATASE 52 U/L (38-126); ANION GAP 9 (5-19); ASPARTATE AMINO TRANSFERASE 20 U/L (14-36); BILIRUBIN,TOTAL 0.3 mg/dL (0.2-1.3); BLOOD UREA NITROGEN 8 mg/dL (7-20); CALCIUM 9.1 mg/dL (8.4-10.2); CARBON DIOXIDE 26 mmol/L (22-30); CHLORIDE 107 mmol/L (98-107); CREATINE KINASE 76 U/L (30-135); GLUCOSE 80 mg/dL (75-110); POTASSIUM 4.6 mmol/L (3.6-5.0); TOTAL PROTEIN 7.8 g/dL (6.3-8.2)
[2020-09-29 11:10] LABS: CREATINE KINASE MB 0.35 ng/mL (<4.55); TROPONIN I < 0.012 ng/mL
[2020-09-29] MEDS ORDERED: AMLODIPINE BESYLATE 5 MG TABLET PO ONE (11:59)
--- NOTE | 2020-09-29 12:01 | ER Document Report ---
ED Headache - General Chief Complaint: Headache Stated Complaint: HEADACHE Time Seen by Provider: 09/29/20 11:41 Notes: HPI: 40-year-old female that presents today with headache to the frontal location of the head for around 3 days. No double or blurry vision. No head trauma. No fevers. No weakness or numbness. Patient states she has been out of her blood pressure medications for greater than a year. She states she recently got her insurance back. She cannot remember what blood pressure medication she was taking. She denies any vomiting, chest pain, calf pain or leg swelling. She states she does have a "long headache history" including bimonthly headaches since she was 13 years of age. She used to be on headache medication treatment but does not remember the medications. ROS: See HPI All other review of systems reviewed and otherwise negative Reviewed vital signs and nursing note as charted by RN. PHYSICAL EXAM: CONSTITUTIONAL: Alert and oriented and responds appropriately to questions. Well-appearing; well-nourished HEAD: Normocephalic; atraumatic EYES: PERRL; full extraocular range of motion; no nystagmus ENT: Normal nose; no rhinorrhea; moist mucous membranes; pharynx without lesions noted NECK: Supple without meningismus; non-tender; no cervical lymphadenopathy, no masses CARD: Regular rate and rhythm; no murmurs; symmetric distal pulses RESP: Normal chest excursion without splinting or tachypnea; breath sounds clear and equal bilaterally ABD/GI: Normal bowel sounds; non-distended; soft, non-tender BACK: The back appears normal and is non-tender to palpation EXT: Normal ROM in all joints; non-tender to palpation; no edema SKIN: No acute lesions noted NEURO: CN 2-12 intact; 5/5 bilateral upper and lower extremity strength with sensation intact to light touch PSYCH: The patient's mood and manner are appropriate. Grooming and personal hygiene are appropriate. TRAVEL OUTSIDE OF THE [place] IN LAST 30 DAYS: No - Related Data Allergies/Adverse Reactions: egg Allergy (Verified 09/29/20 09:35) hydrocodone bitartrate [From Vicodin] Allergy (Verified 09/29/20 09:35) iodine [Iodine] Allergy (Verified 09/29/20 09:35) Shellfish * [Shellfish] Allergy (Verified 09/29/20 09:35) Past Medical History - Social History Smoking Status: Current Every Day Smoker Chew tobacco use (# tins/day): No Frequency of alcohol use: None Drug Abuse: None Family History: Arthritis, CAD, CVA, DM, Hyperlipidemia, Hypertension, Malignancy, Thyroid Disfunction Patient has homicidal ideation: No - Past Medical History Cardiac Medical History: Reports: Hx Hypertension Denies: Hx Coronary Artery Disease, Hx Heart Attack Pulmonary Medical History: Reports: Hx Bronchitis Denies: Hx Asthma, Hx COPD, Hx Pneumonia, Hx Tuberculosis Neurological Medical History: Reports: Hx Migraine. Denies: Hx Cerebrovascular Accident, Hx Seizures Endocrine Medical History: Denies: Hx Diabetes Mellitus Type 1, Hx Diabetes Mellitus Type 2 Renal/ Medical History: Reports: Hx Ovarian Cysts. Denies: Hx Peritoneal D ialysis GI Medical History: Reports: Hx Gastroesophageal Reflux Disease, Hx Hiatal Hernia Musculoskeletal Medical History: Reports Hx Arthritis, Reports Hx Musculoskeletal Deformity, Reports Hx Musculoskeletal Trauma Skin Medical History: Denies Hx MRSA Psychiatric Medical History: Reports: Hx Anxiety Past Surgical History: Denies: Hx Pacemaker - Immunizations Immunizations up to date: Yes Hx Diphtheria, Pertussis, Tetanus Vaccination: Yes - 2010 Physical Exam - Vital signs Vitals: Temp Pulse Resp BP Pulse Ox 99.0 F 82 16 136/100 H 100 09/29/20 09:29 09/29/20 09:29 09/29/20 09:29 09/29/20 09:29 09/29/20 09:29 Course - Re-evaluation Re-evalutation: 09/29/20 12:00 Given the history and physical examination with the blood pressure here as lani rded, we will obtain basic labs, CT scan of the head, and reassess. The lack of any double or blurry vision, soft globes, equal reactive pupils, no temporal erythema redness, no fever, I do believe acute angle-closure glaucoma, temporal arteritis, and bacterial meningitis to be extremely unlikely. This could be related to the patient's chronic headaches or blood pressure related. We will provide a dose of Norvasc and reassess. 09/29/20 13:16 Imaging and labs as recorded. Still no focal neurological deficits. Patient's headache is improved. I will discharge the patient home on a course of Norvasc with strict return precautions. Patient states she currently does have a primary care physician now that she has insurance. - Vital Signs Vital signs: Temp Pulse Resp BP Pulse Ox 99.0 F 82 16 144/103 H 100 09/29/20 09:36 09/29/20 09:29 09/29/20 09:29 09/29/20 13:02 09/29/20 13:02 - Laboratory Result Diagrams: 09/29/20 10:13 09/29/20 10:13 Laboratory results interpreted by me: 09/29/20 10:13 RDW 15.0 H Discharge - Discharge Clinical Impression: Elevated blood pressure reading Headache Qualifiers: Headache type: unspecified Headache chronicity pattern: unspecified pattern I ntractability: not intractable Qualified Code(s): R51.9 - Headache, unspecified Condition: Good Disposition: HOME, SELF-CARE Additional Instructions: Come back immediately for any worsening headache, blurry vision, weakness or numbness, fevers or vomiting, or any other acute problems. Please take the blood pressure medications that we have prescribed and follow-up with the primary care physician. Prescriptions: Amlodipine Besylate [Norvasc 5 mg Tablet] 5 mg PO DAILY #30 tablet
--- NOTE | 2020-09-29 13:02 | RADIOLOGY REPORT (SQ) ---
EXAM DESCRIPTION: CT HEAD WITHOUT IMAGES COMPLETED DATE/TIME: 09/29/2020 11:49 am REASON FOR STUDY: 21; headache COMPARISON: 04/19/2018 TECHNIQUE: Axial images acquired through the brain without intravenous contrast. Images reviewed wi th bone, brain and subdural windows. Additional sagittal and coronal reconstructions were generated. Images stored on PACS. All CT scanners at this facility use dose modulation, iterative reconstruction, and/or weight based d osing when appropriate to reduce radiation dose to as low as reasonably achievable (ALARA). [facility]: Dose Right [facility]: CareDose [facility]: Dose Right [facility]: Teradose 4D [facility]: [employer] RADIATION DOSE: CT Rad equipment meets quality standard of care and radiation dose reduction techniq ues were employed. CTDIvol: 53.2 mGy. DLP: 991 mGy-cm. mGy. LIMITATIONS: None. FINDINGS: VENTRICLES: Normal size and contour. CEREBRUM: No masses. No hemorrhage. No midline shift. No evidence for acute infarction. Normal gra y/white matter differentiation. No areas of low density in the white matter. CEREBELLUM: No masses. No hemorrhage. No alteration of density. No evidence for acute infarction. EXTRAAXIAL SPACES: No fluid collections. No masses. ORBITS AND GLOBE: No intra- or extraconal masses. Normal contour of globe without masses. CALVARIUM: No fracture. PARANASAL SINUSES: No fluid or mucosal thickening. SOFT TISSUES: No mass or hematoma. OTHER: No other significant finding. IMPRESSION: NO ACUTE INTRACRANIAL IMAGING FINDINGS. EVIDENCE OF ACUTE STROKE: NO. COMMENT: Quality ID # [id number]: Final reports with documentation of one or more dose reduction techniques (e.g., Automated exposure control, adjustment of the mA and/or kV according to patient size, use of iterative reconstruction technique) TECHNICAL DOCUMENTATION: JOB ID: [id number] [employer]- All Rights Reserved Reading location - IP/workstation name: [email or web address]
[2020-09-29 13:14] VITALS: BP 144/103
[2020-09-29 13:39] LABS: APPEARANCE,URINE SLIGHTLY-CLOUDY; BILIRUBIN,URINE NEGATIVE (NEGATIVE); COLOR,URINE YELLOW; GLUCOSE, URINE NEGATIVE (NEGATIVE); KETONES,URINE NEGATIVE (NEGATIVE); LEUKOCYTE ESTERASE,URINE SMALL (NEGATIVE); NITRITE,URINE NEGATIVE (NEGATIVE); PROTEIN,URINE NEGATIVE (NEGATIVE); URINE SPECIFIC GRAVITY 1.018; UROBILINOGEN,URINE NEGATIVE mg/dL (<2.0)
== END 2020-09-29 13:59 | disposition home or self-care (01) ==
LOC: ER 09:08
DX: I10 Essential (primary) hypertension (principal); R51.9 Headache, unspecified; F17.200 Nicotine dependence, unspecified, uncomplicated; Z91.012 Allergy to eggs; Z88.6 Allergy status to analgesic agent; Z88.5 Allergy status to narcotic agent; Z91.013 Allergy to seafood
CPT/HCPCS: 36415; 70450; 80053; 81001; 82550; 82553; 84484; 85025; 99284

== ENCOUNTER 2020-12-14 18:14 | Emergency (ER) | payer SELFPAY ==
[2020-12-14 18:39] VITALS: BP 119/79
[2020-12-14] MEDS ORDERED: LIDOCAINE 1%/EPINEPHRINE INJ 20 ML VIAL INJ ONE (19:17)
[2020-12-14] MEDS ORDERED: CLINDAMYCIN HCL 150 MG CAPSULE PO ONE (19:30)
[2020-12-14] MEDS ORDERED: HYDROCODONE/ACETAMINOPHEN 5-325 MG (6 TAB/ER DISP) PO PRN (19:30)
--- NOTE | 2020-12-14 19:40 | ER Document Report ---
HPI - HPI Time Seen by Provider: 12/14/20 19:11 Pain Level: 5 Notes: 40-year-old female presents to the emergency room today for left knee pain for the last 4 days after she noticed redness on the lateral aspect of her left knee. Has not tried any heat or icing, [id number] medications. Unable to bear full weight. He thinks she may have been bitten by a bug. Denies any history of MRSA. Reports pain is is 5 out of 5. Reports she did have some purulent drainage from the wound this morning. Denies any other area of pain or injury. Denies fevers, chills, chest pain,palpitations, shortness of breath, dyspnea, nausea, vomiting, diarrhea, abdominal pain, weakness, bowel or bladder dysfunction, saddle anesthesia, numbness or tingling in bilateral upper or lower extremities equally, muscle paralysis, weakness in bilateral upper or lower extremities equally or rash. Denies IV drug use. - REPRODUCTIVE LMP: 12/09/20 Reproductive: DENIES: : - MUSCULOSKELETAL Musculoskeletal: REPORTS: Extremity pain Past Medical History - General Information source: Patient - Social History Smoking Status: Current Every Day Smoker Frequency of alcohol use: None Drug Abuse: None Family History: Arthritis, CAD, CVA, DM, Hyperlipidemia, Hypertension, Malignancy, Thyroid Disfunction - Past Medical History Cardiac Medical History: Reports: Hx Hypertension Denies: Hx Coronary Artery Disease, Hx Heart Attack Pulmonary Medical History: Reports: Hx Bronchitis Denies: Hx Asthma, Hx COPD, Hx Pneumonia, Hx Tuberculosis Neurological Medical History: Reports: Hx Migraine. Denies: Hx Cerebrovascular Accident, Hx Seizures Endocrine Medical History: Denies: Hx Diabetes Mellitus Type 1, Hx Diabetes Mellitus Type 2 Renal/ Medical History: Reports: Hx Ovarian Cysts. Denies: Hx Peritoneal Dialysis GI Medical History: Reports: Hx Gastroesophageal Reflux Disease, Hx Hiatal Hernia Musculoskeletal Medical History: Reports Hx Arthritis, Reports Hx Musculoskeletal Deformity, Reports Hx Musculoskeletal Trauma Skin Medical History: Denies Hx MRSA Psychiatric Medical History: Reports: Hx Anxiety Past Surgical History: Denies: Hx Pacemaker - Immunizations Immunizations up to date: Yes Hx Diphtheria, Pertussis, Tetanus Vaccination: Yes - 2010 Vertical Provider Document - CONSTITUTIONAL Agree With Documented VS: Yes Exam Limitations: No Limitations General Appearance: WD/WN Notes: MEDICATIONS: I agree with the patient medications as charted by the RN. ALLERGIES: I agree with the allergies as charted by the RN. PAST MEDICAL HISTORY/PAST SURGICAL HISTORY: Reviewed and agree as charted by RN. SOCIAL HISTORY: Reviewed and agree as charted by RN. FAMILY HISTORY: No significant familial comorbid conditions directly related to patient complaint EXAM: Reviewed vital signs as charted by RN. PHYSICAL EXAMINATION: reviewed vital signs by RN GENERAL: Well-appearing, well-nourished and in no acute distress. HEAD: Atraumatic, normocephalic. EYES: Pupils equal round and reactive to light, extraocular movements intact, conjunctiva are normal. ENT: Nares patent, oropharynx clear without exudates. Moist mucous membranes. NECK: Normal range of motion, supple without lymphadenopathy LUNGS: Breath sounds clear to auscultation bilaterally and equal. No wheezes rales or rhonchi. HEART: Regular rate and rhythm without murmurs ABDOMEN: Soft, nontender, nondistended abdomen. No guarding, no rebound. No masses appreciated. Female : deferred Musculoskeletal: Normal range of motion, no pitting or edema. No cyanosis. left knee pain with palpation to lateral aspect of knee with noted swelling. negative jennifer's sign. anterior and posterior drawer test negative. noted pain with ____. Dtr + 2 in BLE. Full motor and sensory function to BLE equally. No open wounds. No induration or drainage. Strength 5 out of 5 bilaterally equally. Ankle examination normal. Squeeze test negative. Hip examination normal. Pulses + 2 bilaterally and equally.negative squeeze bilaterally and equally. NEUROLOGICAL: Cranial nerves grossly intact. Normal speech, normal gait. Normal sensory, motor exams PSYCH: Normal mood, normal affect. SKIN: Warm, Dry, normal turgor, no rashes or lesions noted. Left lateral aspect of the knee with approximately 4 cm x 4 cm area of erythema, induration warmth to touch. Noted fluctuance with a head in the center. - INFECTION CONTROL TRAVEL OUTSIDE OF THE [place] IN LAST 30 DAYS: No Course - Re-evaluation Re-evalutation: 12/14/20 19:52 afebrile, vitals stable, no distress. - Vital Signs Vital signs: Temp Pulse Resp BP Pulse Ox 98.4 F 77 119/79 99 12/14/20 18:37 12/14/20 18:37 12/14/20 18:37 12/14/20 18:37 - Laboratory Results Critical Laboratory Results Reviewed: No Critical Results - Radiology Results Critical Radiology Results Reviewed: No Critical Results Procedures - Incision and Drainage Left Knee Time completed: 19:35 Type: Simple Anesthetic type: 1% Lidocaine w/epi Blade size: 11 I&D procedure: Shurclens applied Incision Method: Incision made by scalpel Amount/type of drainage: 1mL purulent drainage Notes: 12/14/20 19:54 verbal consent given for I&D. washed with shurclens, scrubbed for 5 minutes. only 1mL of purulent expressed. no packing needed due to small amount of drainage. site cleaned with normal saline. sterile dressing applied. pt tolerated procedure without incident. 12/14/20 19:57 - Laceration/Wound Repair Left Knee Wound length (cm): 0 Wound's Depth, Shape: Other - no laceration repair was done Discharge - Discharge Clinical Impression: Cellulitis of left knee, Abscess of left knee Condition: Stable Disposition: HOME, SELF-CARE Instructions: Oral Narcotic Medication ([facility]), Abscess ([facility]), Clindamycin ([facility]) Additional Instructions: You were seen for an abscess that required drainage. Please clean this area with soap and water twice daily and apply a topical antibiotic. Dress the area after each cleaning. Please return if you develop fever, vomiting, the pain at the site worsens, you notice spreading redness from the area, or you have any other symptoms that are concerning to you. Do not drive, drink or operate heavy machinery while taking medication as it can cause sedation or impairment of cognitive function, only take if you are having severe pain. Please return to the emergency room in 48 hours for reevaluation of your wound. You are able to get much drainage out of your abscess today. Please take antibiotic every 6 hours with food as directed. You can alternate between Tylenol and ibuprofen as needed. A work note has been provided. Return immediately for any new or worsening symptoms. Follow up with primary care provider, call tomorrow to make followup appointment. Prescriptions: Clindamycin HCl 300 mg PO Q6H #28 capsule Forms: Return to Work Referrals: CHELSEY ZHU MD [[employer]UNITY BASED STAFF] - Follow up as needed
== END 2020-12-14 19:52 | disposition home or self-care (01) ==
LOC: ER 18:14
DX: L02.416 Cutaneous abscess of left lower limb (principal); L03.116 Cellulitis of left lower limb; F17.200 Nicotine dependence, unspecified, uncomplicated; I10 Essential (primary) hypertension
CPT/HCPCS: 99284; 10060; J3490

== ENCOUNTER 2020-12-16 14:51 | Emergency (ER) | payer SELFPAY ==
[2020-12-16] MEDS ORDERED: CLINDAMYCIN HCL 150 MG CAPSULE PO ONE (15:58)
--- NOTE | 2020-12-16 16:12 | ER Document Report ---
ED Suture/Wound Recheck - General Chief Complaint: Abscess Stated Complaint: ABSCESS RECHECK/KNEE Time Seen by Provider: 12/16/20 15:40 Primary Care Provider: [facility] [Provider Group] - Follow up as needed TRAVEL OUTSIDE OF THE [place] IN LAST 30 DAYS: No - HPI Notes: Patient is a 40-year-old female who presents for an abscess recheck. She was seen in the emergency department 2 days ago for an abscess to her left knee. The abscess was drained and patient was started on clindamycin. Area of cellulitis was marked at the initial visit. Patient reports continued pain and drainage from the abscess but denies any fever or vomiting. Patient states she has not yet started her antibiotics as she has not picked them up. - Related Data Allergies/Adverse Reactions: egg Allergy (Verified 09/29/20 09:35) hydrocodone bitartrate [From Vicodin] Allergy (Verified 09/29/20 09:35) iodine [Iodine] Allergy (Verified 09/29/20 09:35) Shellfish * [Shellfish] Allergy (Verified 09/29/20 09:35) Past Medical History - General Information source: Patient - Social History Smoking Status: Current Every Day Smoker Family History: Arthritis, CAD, CVA, DM, Hyperlipidemia, Hypertension, Malignancy, Thyroid Disfunction - Past Medical History Cardiac Medical History: Reports: Hx Hypertension Denies: Hx Coronary Artery Disease, Hx Heart Attack Pulmonary Medical History: Reports: Hx Bronchitis Denies: Hx Asthma, Hx COPD, Hx Pneumonia, Hx Tuberculosis Neurological Medical History: Reports: Hx Migraine. Denies: Hx Cerebrovascular Accident, Hx Seizures Endocrine Medical History: Denies: Hx Diabetes Mellitus Type 1, Hx Diabetes Mellitus Type 2 Renal/ Medical History: Reports: Hx Ovarian Cysts. Denies: Hx Peritoneal Dialysis GI Medical History: Reports: Hx Gastroesophageal Reflux Disease, Hx Hiatal Hernia Musculoskeletal Medical History: Reports Hx Arthritis, Reports Hx Musculoskeletal Deformity, Reports Hx Musculoskeletal Trauma Skin Medical History: Denies Hx MRSA Psychiatric Medical History: Reports: Hx Anxiety Past Surgical History: Denies: Hx Pacemaker - Immunizations Immunizations up to date: Yes Hx Diphtheria, Pertussis, Tetanus Vaccination: Yes - 2010 Review of Systems - Review of Systems Constitutional: No symptoms reported EENT: No symptoms reported Cardiovascular: No symptoms reported Respiratory: No symptoms reported Gastrointestinal: No symptoms reported Genitourinary: No symptoms reported Female Genitourinary: No symptoms reported Musculoskeletal: No symptoms reported Skin: See HPI Hematologic/Lymphatic: No symptoms reported Neurological/Psychological: No symptoms reported Physical Exam - Vital signs Vitals: Temp Pulse Resp BP Pulse Ox 98.3 F 66 16 122/80 100 12/16/20 14:55 12/16/20 14:55 12/16/20 14:55 12/16/20 14:55 12/16/20 14:55 - Notes Notes: PHYSICAL EXAMINATION: GENERAL: Well-appearing, well-nourished and in no acute distress. HEAD: Atraumatic, normocephalic. EYES: sclera anicteric, conjunctiva are normal. ENT: Moist mucous membranes. NECK: Normal range of motion LUNGS: Normal work of breathing HEART: 2+ radial pulses bilaterally EXTREMITIES: Left lateral aspect of the knee with approximately 1 cm x 1 cm pustule that is actively draining. Erythema with no swelling or induration noted to the surrounding area. Skin marked from previous exam and erythema is smaller in size compared to the marking. NEUROLOGICAL: No focal neurological deficits. Moves all extremities spontaneously and on command. PSYCH: Normal mood, normal affect. SKIN: Warm, Dry, normal turgor, no rashes or lesions noted. Course - Re-evaluation Re-evalutation: Patient is a 40-year-old female who presents for an abscess recheck. I&D was performed 2 days ago for an abscess to the left knee and patient was started clindamycin. However patient has not yet started her antibiotics she has not picked them up from the pharmacy yet. Patient states the area has improved in swelling and redness but continues to have pain and drainage. Vital signs are stable and within normal limits. Patient is afebrile. On exam, left lateral knee has a small pustule that is actively draining with skin marker demonstrating the prior extent of cellulitis. Area of erythema is smaller when compared to the last visit. I had a lengthy discussion with the patient about the importance of starting her antibiotics immediately as well as completing a full course even if her symptoms resolved. Dose of clindamycin given here in ED. Return precautions and follow-up instructions given. Patient understands and is agreeable to plan. Patient will be discharged home at this time. - Vital Signs Vital signs: Temp Pulse Resp BP Pulse Ox 98.5 F 74 18 126/71 H 100 12/16/20 16:12 12/16/20 16:12 12/16/20 16:12 12/16/20 16:12 12/16/20 16:12 - Laboratory Results Critical Laboratory Results Reviewed: No Critical Results - Radiology Results Critical Radiology Results Reviewed: No Critical Results Discharge - Discharge Clinical Impression: Abscess re-check, Encounter for recheck of abscess following incision and drainage, Abscess of left knee Condition: Stable Disposition: HOME, SELF-CARE Instructions: Abscess ([facility]), Clindamycin ([facility]) Referrals: [facility] [Provider Group] - Follow up as needed
[2020-12-16 16:40] VITALS: BP 126/71
== END 2020-12-16 16:12 | disposition home or self-care (01) ==
LOC: ER 14:51
DX: L02.416 Cutaneous abscess of left lower limb (principal); L03.116 Cellulitis of left lower limb; T36.8X6A Underdosing of other systemic antibiotics, initial encounter; Z91.128 Patient's intentional underdosing of medication regimen for other reason; Z91.14 Patient's other noncompliance with medication regimen; I10 Essential (primary) hypertension; F17.200 Nicotine dependence, unspecified, uncomplicated; Z91.012 Allergy to eggs; Z88.6 Allergy status to analgesic agent; Z88.5 Allergy status to narcotic agent; Z91.013 Allergy to seafood
CPT/HCPCS: 99283